=== PATIENT | female | born 1955 | race Caucasian/White ===

== ENCOUNTER 2020-09-01 12:04 | Emergency (ER) | payer OTHER ==
[~2020-09-01] VITALS: Ht 172.7 cm; Wt 90.7 kg
[~2020-09-01 12:04] MED LIST: ADVAIR 250-501 EACH; ALLER-EASE180 MG PO; AMBEREN; ASPIRIN EC81 M1 PO; FISH OIL 1,4001 EACH PO; GLUCOSAMINE-CH1 EA34 PO; HYDROCHLOROTH12.5 MG PO; LEXAPRO 10 MG T10 MG PO; NIACIN 500 MG500 M1 PO; NORCO 5-325 TA1 EACH PO; ZESTRIL10 MG PO
[2020-09-01 14:45] VITALS: BP 143/76
== END 2020-09-01 14:45 | disposition home or self-care (01) ==
LOC: ER 12:04
DX: S80.812A Abrasion, left lower leg, initial encounter (principal); I10 Essential (primary) hypertension; J45.909 Unspecified asthma, uncomplicated; K21.9 Gastro-esophageal reflux disease without esophagitis; Z79.82 Long term (current) use of aspirin; Z79.899 Other long term (current) drug therapy; Z88.1 Allergy status to other antibiotic agents; Z90.89 Acquired absence of other organs; W19.XXXA Unspecified fall, initial encounter; Y93.89 Activity, other specified; Y92.89 Other specified places as the place of occurrence of the external cause; Y99.8 Other external cause status